=== PATIENT | male | born 1985 | race Two or more races ===

== ENCOUNTER 2019-02-24 19:24 | Emergency (ER) | payer SELFPAY ==
[~2019-02-24] VITALS: Ht 167.6 cm; Wt 86.2 kg
[~2019-02-24 19:24] MED LIST: HYDR-2595
[2019-02-24] MEDS ORDERED: cefTRIAXone SOD 1,000 MG VL IM ONE (20:30)
[2019-02-24] MEDS ORDERED: ONDANSETRON ODT 4 MG TAB PO ONE (20:30)
[2019-02-24] MEDS ORDERED: KETOROLAC TROMETH 60MG/2ML VIAL IM ONE (20:30)
[2019-02-24 21:05] VITALS: BP 138/88
== END 2019-02-24 21:19 | disposition home or self-care (01) ==
LOC: ER 19:24
DX: L02.416 Cutaneous abscess of left lower limb (principal); L02.415 Cutaneous abscess of right lower limb; J45.909 Unspecified asthma, uncomplicated; Z88.8 Allergy status to other drugs, medicaments and biological substances
CPT/HCPCS: 96372; 99283; J0696; J1885; Q0162

== ENCOUNTER 2019-05-16 23:10 | Emergency (ER) | payer MEDICAID ==
[~2019-05-16] VITALS: Ht 167.6 cm; Wt 88.5 kg
[2019-05-17] MEDS ORDERED: ALBUTEROL SULF 2.5 MG/0.5ML(0.5%) NEB SOLN NEB STA (01:21)
[2019-05-17] MEDS ORDERED: IPRATROPIUM BROM 0.5 MG/2.5ML INH SOL NEB ONE ×2 (01:30→05:15)
[2019-05-17] MEDS ORDERED: ALBUTEROL SULF 2.5 MG/0.5ML(0.5%) NEB SOLN NEB ONE (05:15)
[2019-05-17] MEDS ORDERED: methylPREDNISolone SOD SUCC 125 MG/2 ML VL IV ONE (05:15)
[2019-05-17] MEDS ORDERED: ONDANSETRON HCL 4 MG/2 ML VIAL IV ONE (06:00)
[2019-05-17] MEDS ORDERED: SODIUM CHLORIDE 0.9% 1,000 ML IV ONE (06:48)
[2019-05-17] MEDS ORDERED: LORazepam 2MG/ML-1ML VIAL IV ONE (07:00)
[2019-05-17 07:21] VITALS: BP 104/62
[2019-05-17 07:23] LABS: Basophils # (auto) 0 uL; Basophils % (auto) 0.2 % (0.0-2.0); Eosinophils # (auto) 0.1 uL; Eosinophils % (auto) 1.3 % (0.0-7.0); Hematocrit 44.6 % (41.0-53.0); Hemoglobin 15.4 g/dL (13.5-17.5); Lymphocytes # (auto) 2.1 uL; Lymphocytes % (auto) 19.5 % (10.0-50.0); Mean Corpuscular Hemoglobin 30.1 pg (28.0-32.0); Mean Corpuscular Hgb Conc. 34.5 g/dL (32.0-36.0); Mean Corpuscular Volume 87.4 fL (80.0-100.0); Monocytes # (auto) 0.4 uL; Monocytes % (auto) 3.4 % (0.0-12.0); Neutrophils % (auto) 75.6 % (37.0-80.0); Nucleated Red Blood Cells % 0.1 %; Platelet Count (auto) 149 10^3/uL (140-450); Red Cell Distribution Width 12.9 % (11.8-14.3); White Blood Cell 10.5 10^3/uL (4.4-10.8)
[2019-05-17 07:39] LABS: Albumin 3.7 g/dL (3.4-5.0); BUN/Creatinine Ratio 10.9; Calcium 8.5 mg/dL (8.5-10.1); Potassium 3.3 mmol/L (3.5-5.1)
[2019-05-17 07:41] LABS: Bilirubin, Total 0.4 mg/dL (0.2-1.0); Total Protein 7.4 g/dL (6.4-8.2)
[2019-05-17] MEDS ORDERED: cefTRIAXone 1GM/50ML D5W 50 ML IV ONE (08:30)
== END 2019-05-17 08:54 | disposition home or self-care (01) ==
LOC: ER 23:14
DX: F41.9 Anxiety disorder, unspecified (principal); J45.909 Unspecified asthma, uncomplicated
CPT/HCPCS: 36415; 71046; 80053; 85025; 93005; 94640; 94761; 96365; 96375; 99284; J0696; J2060; J2405; J2930; J7611; J7644

== ENCOUNTER 2020-08-03 17:37 | Inpatient (IN) | payer MEDICAID, OTHER ==
[~2020-08-03] VITALS: Ht 170.2 cm; Wt 93.8 kg
[2020-08-03] MEDS ORDERED: ONDANSETRON ODT 4 MG TAB PO ONE (18:30)
[2020-08-03] MEDS ORDERED: PANTOPRAZOLE 40 MG/10 ML VIAL INJ IV STA (19:11)
[2020-08-03] MEDS ORDERED: ONDANSETRON HCL 4 MG/2 ML VIAL IV ONE (19:15)
[2020-08-03 20:39] LABS: Basophils # (auto) 0 10 ^3/uL (0-0.2); Basophils % (auto) 0.2 % (0.0-2.0); Eosinophils # (auto) 0.1 10 ^3/uL (0-0.8); Eosinophils % (auto) 0.5 % (0.0-7.0); Hematocrit 43.1 % (41.0-53.0); Hemoglobin 14.3 g/dL (13.5-17.5); Lymphocytes # (auto) 1.4 10 ^3/uL (0.4-5.4); Lymphocytes % (auto) 9.8 % (10.0-50.0); Mean Corpuscular Hemoglobin 29.3 pg (28.0-32.0); Mean Corpuscular Hgb Conc. 33.2 g/dL (32.0-36.0); Mean Corpuscular Volume 88.1 fL (80.0-100.0); Monocytes # (auto) 0.7 10 ^3/uL (0-1.3); Neutrophils # (auto) 12.2 10 ^3/uL (1.6-8.6); Neutrophils % (auto) 84.5 % (37.0-80.0); Nucleated Red Blood Cells % 0.1 %; Platelet Count (auto) 228 10^3/uL (140-450); Red Blood Cells 4.89 10^6/uL (4.5-5.90); Red Cell Distribution Width 13.1 % (11.8-14.3); White Blood Cell 14.4 10^3/uL (4.4-10.8)
[2020-08-03 20:55] LABS: Calcium 8.9 mg/dL (8.5-10.1)
[2020-08-03 20:56] LABS: INR 1.03 (0.9-1.15); Partial Thromboplastin Time 22.2 sec (23.0-31.2)
[2020-08-03 21:00] LABS: BUN/Creatinine Ratio 33.6; Bilirubin, Total 0.6 mg/dL (0.2-1.0); Total Protein 7.5 g/dL (6.4-8.2)
[2020-08-03 22:53] LABS: Urine Bacteria NONE SEEN /hpf (None Seen); Urine Blood Negative /uL (Negative); Urine Mucus FEW (None Seen); Urine WBC <1 /hpf (0 - 3)
[2020-08-04] VITALS (8 sets, daily range): BP systolic 111–134; BP diastolic 65–83
[2020-08-04] MEDS ORDERED: ONDANSETRON HCL 4 MG/2 ML VIAL IV PRN (02:30)
[2020-08-04 03:12] LABS: Hematocrit 38.7 % (41.0-53.0); Hemoglobin 12.8 g/dL (13.5-17.5)
[2020-08-04] MEDS: SODIUM CHLORIDE 0.9% 1,000 ML IV SCH ×2 (04:00→18:12)
--- NOTE | 2020-08-04 04:28 | NUR ---
assumed care of pt admitted from ER via w/c. 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 v/s stable, belongings documented.
--- NOTE | 2020-08-04 07:05 | NUR ---
Patient asleep with no distress noted. Stable.
--- NOTE | 2020-08-04 07:50 | NUR ---
Patient resting quietly in bed with no complaint of pain or discomfort. Patient stable at this time.
[2020-08-04] MEDS: cefTRIAXone 1GM/50ML D5W 50 ML IV SCH (08:07)
--- NOTE | 2020-08-04 08:08 | NUR ---
Scheduled IV abx given per order. Patient resting quietly in bed. Patient stable.
[2020-08-04] MEDS: PANTOPRAZOLE 40 MG/10 ML VIAL INJ IV SCH ×2 (09:04→22:01)
--- NOTE | 2020-08-04 09:04 | NUR ---
Scheduled IVP medication given per order. Patient stable at this time.
--- NOTE | 2020-08-04 09:30 | NUR ---
Patient stable with Dr. Prajapati at bedside. Patient subsequently ambulated to bathroom and back to bed. Patient stable.
[2020-08-04] MEDS: SUCRALFATE 1 GM/10 ML ORAL SUSP PO SCH ×3 (11:55→22:02)
--- NOTE | 2020-08-04 11:56 | NUR ---
Scheduled medication given per order. Patient stable at this time.
[2020-08-04 14:45] LABS: Calcium 8.2 mg/dL (8.5-10.1); Potassium 4.2 mmol/L (3.5-5.1)
[2020-08-04 14:47] LABS: BUN/Creatinine Ratio 33.3
--- NOTE | 2020-08-04 15:20 | NUR ---
Patient resting comfortably in bed with no distress noted. Patient stable.
--- NOTE | 2020-08-04 18:13 | NUR ---
Scheduled medication given per order. New IVF bag started as well. Patient stable throughout shift.
[2020-08-04] MEDS: HYDROcodone-ACET 10/325MG TAB PO PRN (18:27)
--- NOTE | 2020-08-04 18:27 | NUR ---
Patient medicated for 6/10 abdominal pain. Patient stable at this time.
--- NOTE | 2020-08-04 19:00 | NUR ---
Opening Shift Note Assumed care of patient, awake and alert. No S/S of distress/SOB or pain. Instructed on POC and to call for assist PRN, will continue to monitor for changes Q1hr and PRN.
[2020-08-04] MEDS ORDERED: SERTRALINE HCL 50 MG TAB PO SCH (22:00)
[2020-08-05] MEDS: HYDROcodone-ACET 10/325MG TAB PO PRN ×2 (00:55→15:32)
[2020-08-05 04:51] VITALS: BP 118/75
[2020-08-05] MEDS: SODIUM CHLORIDE 0.9% 1,000 ML IV SCH ×2 (05:10→09:53)
[2020-08-05] MEDS: SUCRALFATE 1 GM/10 ML ORAL SUSP PO SCH ×2 (06:46→11:00)
[2020-08-05 06:47] LABS: Albumin 3.2 g/dL (3.4-5.0); Potassium 4.1 mmol/L (3.5-5.1)
[2020-08-05 06:52] LABS: BUN/Creatinine Ratio 22.1; Bilirubin, Total 0.5 mg/dL (0.2-1.0); Total Protein 6.4 g/dL (6.4-8.2)
[2020-08-05 06:59] LABS: Basophils # (auto) 0.1 10 ^3/uL (0-0.2); Basophils % (auto) 0.6 % (0.0-2.0); Eosinophils # (auto) 0.5 10 ^3/uL (0-0.8); Eosinophils % (auto) 4.7 % (0.0-7.0); Hematocrit 34.8 % (41.0-53.0); Hemoglobin 11.7 g/dL (13.5-17.5); Lymphocytes % (auto) 29.4 % (10.0-50.0); Mean Corpuscular Hgb Conc. 33.6 g/dL (32.0-36.0); Mean Corpuscular Volume 89.5 fL (80.0-100.0); Monocytes # (auto) 0.6 10 ^3/uL (0-1.3); Neutrophils % (auto) 59.3 % (37.0-80.0); Platelet Count (auto) 151 10^3/uL (140-450); Red Blood Cells 3.88 10^6/uL (4.5-5.90); White Blood Cell 10.1 10^3/uL (4.4-10.8)
[2020-08-05 07:50] VITALS: BP 129/71
[2020-08-05] MEDS: cefTRIAXone 1GM/50ML D5W 50 ML IV SCH (08:04)
--- NOTE | 2020-08-05 08:05 | NUR ---
Scheduled IV abx given per order. Patient resting quietly in bed with no distress noted. Patient stable.
--- NOTE | 2020-08-05 08:40 | NUR ---
Patient resting quietly in bed with Dr. Prajapati at bedside.
[2020-08-05 09:00] VITALS: BP 129/71
[2020-08-05] MEDS: PANTOPRAZOLE 40 MG/10 ML VIAL INJ IV SCH (09:53)
--- NOTE | 2020-08-05 09:53 | NUR ---
Scheduled IVP med given and new IVF bag started. Patient stable at this time. Addendum: 08/05/20 at 0956 by TIO GARRIDO RN RN Patient ambulated to bathroom and back to bed.
--- NOTE | 2020-08-05 11:00 | NUR ---
Patient resting comfortably in bed with no distress noted. Patient stable at this time.
[2020-08-05] MEDS ORDERED: PANT40TA2 PO (11:30)
[2020-08-05] MEDS ORDERED: SUCR1TAB22 OR (11:30)
--- NOTE | 2020-08-05 11:40 | NUR ---
Patient asleep with no distress noted. Patient stable.
[2020-08-05 12:13] VITALS: BP 128/78
[2020-08-05 14:35] VITALS: BP 128/78
--- NOTE | 2020-08-05 15:32 | NUR ---
Patient medicated for 6/10 abdominal pain. Patient resting quietly in bed. Patient stable.
--- NOTE | 2020-08-05 16:00 | NUR ---
Discharge instructions Both written and verbal discharge instructions given to patient as ordered. Encourage to follow up with Primary Care Provider and with public relations account supervisor for outpatient EGD. Patient also has a scheduled appointment to see Dr. Hernandez. Advised patient that two prescriptions (protonix and carafate) were electronically sent to his pharmacy. All questions and concerns addressed. Patient verbalized understanding of instructions. Medication reconciliation form completed and copy given to patient. Peripheral IV removed with catheter intact; pressure dressing applied to site. Patient stable at this time.
--- NOTE | 2020-08-05 16:25 | NUR ---
Discharge Patient discharged to home in stable condition. Patient taken to vehicle via wheelchair with all personal belongings, accompanied by staff member. No distress noted at time of departure.
[2020-08-05 16:30] VITALS: BP 118/79
== END 2020-08-05 16:25 | disposition home or self-care (01) | DRG 243 ==
LOC: ER 17:46 → OVERFLOW 17:47 → CENTRAL 08-04 04:27
PROVIDERS: ADMIT Nurse Practitioner; ATTEND Internal Medicine
DX: K20.91 Esophagitis, unspecified with bleeding (principal); K80.20 Calculus of gallbladder without cholecystitis without obstruction; D72.829 Elevated white blood cell count, unspecified; J45.909 Unspecified asthma, uncomplicated; K76.0 Fatty (change of) liver, not elsewhere classified; K74.60 Unspecified cirrhosis of liver; E66.9 Obesity, unspecified; Z20.828 Contact with and (suspected) exposure to other viral communicable diseases; Z68.32 Body mass index [BMI] 32.0-32.9, adult; Z88.8 Allergy status to other drugs, medicaments and biological substances; Z90.49 Acquired absence of other specified parts of digestive tract; Z90.89 Acquired absence of other organs; Z79.899 Other long term (current) drug therapy; K29.70 Gastritis, unspecified, without bleeding; K27.9 Peptic ulcer, site unspecified, unspecified as acute or chronic, without hemorrhage or perforation
CPT/HCPCS: 36415; 74176; 80048; 80053; 81001; 83690; 85014; 85018; 85025; 85610; 85730; 86850; 86900; 86901; 87426; 96374; 96375; C9113; G0378; J0696; J2405; Q0162

== ENCOUNTER 2024-04-24 18:10 | Emergency (ER) | payer OTHER ==
[~2024-04-24] VITALS: Ht 167.6 cm; Wt 100.0 kg
[~2024-04-24 18:10] MED LIST changes: +PANT40TA2 PO; +SUCR1TAB31 OR
[2024-04-24 19:03] VITALS: BP 126/68; PULSE 78; RESP 18; TEMP 98.6; O2SAT 98
[2024-04-24] MEDS ORDERED: AMOX875T4 PO (20:17)
[2024-04-24] MEDS: HYDROcodone-ACET 5/325MG TAB PO ONE (21:13)
[2024-04-24] MEDS: ONDANSETRON ODT 4 MG TAB PO ONE (21:13)
== END 2024-04-24 21:18 | disposition home or self-care (01) ==
LOC: ER 18:10
DX: S82.891A Other fracture of right lower leg, initial encounter for closed fracture (principal); S09.8XXA Other specified injuries of head, initial encounter; J01.90 Acute sinusitis, unspecified; J45.909 Unspecified asthma, uncomplicated; Z98.890 Other specified postprocedural states; Z88.8 Allergy status to other drugs, medicaments and biological substances; Z79.899 Other long term (current) drug therapy; W01.0XXA Fall on same level from slipping, tripping and stumbling without subsequent striking against object, initial encounter; Y93.89 Activity, other specified; Y92.89 Other specified places as the place of occurrence of the external cause; Y99.8 Other external cause status
CPT/HCPCS: 29515; 70450; 73610; 73630; 99284; Q0162